=== PATIENT | female | born 1960 | race Caucasian/White ===

== ENCOUNTER 2017-12-25 10:47 | Emergency (ER) | payer MEDICARE, MEDICAID ==
[~2017-12-25] VITALS: Ht 167.6 cm; Wt 49.0 kg
[~2017-12-25 10:47] MED LIST: PROC25SU31 RC
[2017-12-25] MEDS ORDERED: famotidine/PF 10 mg/ml inj IV ONE (11:55)
[2017-12-25] MEDS ORDERED: ondansetron/PF 4mg/2ml inj IV ONE (11:55)
[2017-12-25] MEDS ORDERED: pantoprazole 40 MG vial IV ONE (11:55)
[2017-12-25] MEDS ORDERED: normal saline 1000ml 1,000 ML IV ONE (11:55)
[2017-12-25] MEDS ORDERED: proCHLORperazine 10 MG/2 ml inj IV ONE (11:55)
[2017-12-25 12:15] LABS: BASOPHILS % (AUTO) 0.4 % (0-1); EOSINOPHILS % (AUTO) 0 % (0-6); HEMATOCRIT 46.3 % (35.0-45.0); HEMOGLOBIN 15.7 g/dl (12.0-16.0); LYMPHOCYTES % (AUTO) 25.8 % (21-51); MEAN CORPUSCULAR HEMOGLOBIN 30.8 PG (27.0-31.0); MEAN CORPUSCULAR HGB CONC 33.8 % (33.0-36.5); MEAN PLATELET VOLUME 8.3 FL (7.4-10.4); MONOCYTES # (AUTO) 0.5 X10'3 (0-0.9); MONOCYTES % (AUTO) 4.2 % (2-12); NEUTROPHILS # (AUTO) 8.1 X10'3 (1.8-7.7); NEUTROPHILS % (AUTO) 69.6 % (42-75); PLATELET COUNT 222 X10'3 (140-440); RED BLOOD COUNT 5.09 X10'6 (4.20-5.60); RED CELL DISTRIBUTION WIDTH 14.2 % (11.5-14.5); WHITE BLOOD COUNT 11.7 X10'3 (4.5-11.0)
[2017-12-25 12:28] LABS: ALANINE AMINOTRANSFERASE 30 U/L (12-78); ALBUMIN 4.1 G/DL (3.4-5.0); ALBUMIN/GLOBULIN RATIO 1.2 (1.1-1.5); ALKALINE PHOSPHATASE 65 IU/L (46-116); ANION GAP 11 (8-16); ASPARTATE AMINO TRANSFERASE 19 U/L (10-37); BILIRUBIN,TOTAL 0.4 MG/DL (0.1-1.0); BLOOD UREA NITROGEN 16 MG/DL (7-18); BUN/CREATININE RATIO 23.2 (6.6-38.0); CALCIUM 9.1 MG/DL (8.5-10.1); CHLORIDE 97 MMOL/L (99-107); CREATININE 0.69 MG/DL (0.40-0.90); GLUCOSE 103 MG/DL (70-104); LIPASE 137 U/L (73-393); POTASSIUM 3.9 MMOL/L (3.5-5.1); SODIUM 134 MMOL/L (135-145); TOTAL CARBON DIOXIDE 26.1 MMOL/L (24-32); TOTAL PROTEIN 7.5 G/DL (6.4-8.2); eGFR 88 ML/MIN
[2017-12-25 12:52] LABS: CLARITY,URINE SLIGHTLY CLOUDY (Clear); COLOR,URINE YELLOW (Yellow); GLUCOSE, URINE NEGATIVE (Neg); KETONES,URINE 15 mg/dl (Neg); LEUKOCYTE ESTERASE ,URINE TRACE (Neg); NITRITES, URINE NEGATIVE (Neg); OCCULT BLOOD,URINE TRACE-LYSED (Neg); PROTEIN,URINE NEGATIVE (Neg); UROBILINOGEN,URINE 0.2 E.U/dL (0.2-1.0)
[2017-12-25 12:55] LABS: UA COLLECTION TYPE CLN CATCH MIDSTREAM
[2017-12-25 12:59] LABS: BACTERIA,URINE FEW /HPF (Neg); MUCUS STRANDS FEW /LPF (Neg); RBC,URINE NONE SEEN /HPF (0-2); SQUAMOUS EPITHELIAL CELL,UR FEW /LPF (FEW); WBC,URINE 0-4 /HPF (0-4)
[2017-12-25 13:00] LABS: AMORPHOUS PHOSPHATES 1+
[2017-12-25] MEDS ORDERED: PHE25R PR (13:57)
[2017-12-25 14:23] VITALS: BP 139/89
== END 2017-12-25 14:25 | disposition home or self-care (01) ==
LOC: ER 10:47
DX: K59.00 Constipation, unspecified (principal); R91.1 Solitary pulmonary nodule; R94.6 Abnormal results of thyroid function studies; R10.32 Left lower quadrant pain; K21.9 Gastro-esophageal reflux disease without esophagitis; F17.200 Nicotine dependence, unspecified, uncomplicated; F12.90 Cannabis use, unspecified, uncomplicated; Z90.710 Acquired absence of both cervix and uterus; Z98.890 Other specified postprocedural states; Z88.8 Allergy status to other drugs, medicaments and biological substances; Z88.5 Allergy status to narcotic agent; Z79.899 Other long term (current) drug therapy
CPT/HCPCS: 36415; 71046; 80053; 81001; 83690; 84443; 85025; 87088; 96361; 96374; 96375; 99285; C9113; J0780; J2405; J3490; J7030

== ENCOUNTER 2018-05-11 19:36 | Inpatient (IN) | payer MEDICARE, MEDICAID ==
[~2018-05-11] VITALS: Ht 167.6 cm; Wt 42.0 kg
[~2018-05-11 19:36] MED LIST changes: +PHE25R PR
[2018-05-11 20:05] LABS: BASOPHILS % (AUTO) 0.3 % (0-1); EOSINOPHILS # (AUTO) 0.2 X10'3 (0-0.9); EOSINOPHILS % (AUTO) 1.4 % (0-6); LYMPHOCYTES # (AUTO) 6.6 X10'3 (1.1-4.8); LYMPHOCYTES % (AUTO) 45.6 % (21-51); MEAN CORPUSCULAR HEMOGLOBIN 29.3 PG (27.0-31.0); MEAN CORPUSCULAR HGB CONC 33.4 % (33.0-36.5); MEAN CORPUSCULAR VOLUME 87.9 FL (78-98); MEAN PLATELET VOLUME 8.6 FL (7.4-10.4); MONOCYTES # (AUTO) 0.6 X10'3 (0-0.9); MONOCYTES % (AUTO) 3.9 % (2-12); NEUTROPHILS % (AUTO) 48.8 % (42-75); PLATELET COUNT 275 X10'3 (140-440); RED BLOOD COUNT 5.12 X10'6 (4.20-5.60); WHITE BLOOD COUNT 14.4 X10'3 (4.5-11.0)
[2018-05-11 20:07] LABS: CLARITY,URINE CLEAR (Clear); COLOR,URINE YELLOW (Yellow); GLUCOSE, URINE NEGATIVE (Neg); KETONES,URINE NEGATIVE (Neg); LEUKOCYTE ESTERASE ,URINE TRACE (Neg); NITRITES, URINE NEGATIVE (Neg); OCCULT BLOOD,URINE SMALL (Neg); PH,URINE 6.5 (4.8-8.0); PROTEIN,URINE NEGATIVE (Neg); UROBILINOGEN,URINE 0.2 E.U/dL (0.2-1.0)
[2018-05-11 20:19] LABS: ALANINE AMINOTRANSFERASE 20 U/L (12-78); ALBUMIN 3.8 G/DL (3.4-5.0); ALBUMIN/GLOBULIN RATIO 1.2 (1.1-1.5); ALKALINE PHOSPHATASE 70 IU/L (46-116); AMYLASE 45 U/L (25-115); ANION GAP 7 (8-16); ASPARTATE AMINO TRANSFERASE 17 U/L (10-37); BILIRUBIN,TOTAL 0.3 MG/DL (0.1-1.0); BLOOD UREA NITROGEN 9 MG/DL (7-18); BUN/CREATININE RATIO 13.8 (6.6-38.0); CALCIUM 9.1 MG/DL (8.5-10.1); CHLORIDE 98 MMOL/L (99-107); CREATININE 0.65 MG/DL (0.40-0.90); GLUCOSE 108 MG/DL (70-104); LIPASE 285 U/L (73-393); SODIUM 136 MMOL/L (135-145); TOTAL CARBON DIOXIDE 30.7 MMOL/L (24-32); eGFR > 90 ML/MIN
[2018-05-11 20:21] LABS: UA COLLECTION TYPE CLN CATCH MIDSTREAM
[2018-05-11 20:27] LABS: INR 1.1 INR; PROTHROMBIN TIME 11.3 SECONDS (9.0-12.0)
[2018-05-11 20:32] LABS: RBC,URINE 0-2 /HPF (0-2); WBC,URINE 0-4 /HPF (0-4)
[2018-05-11 20:33] LABS: BACTERIA,URINE FEW /HPF (Neg); MUCUS STRANDS NONE SEEN /LPF (Neg); SQUAMOUS EPITHELIAL CELL,UR FEW /LPF (FEW)
[2018-05-11] MEDS ORDERED: potassium 10mEq/100ml NS w/LIDOcaine (10mg/bag) IV ONE ×2 (20:55→21:35)
[2018-05-11] MEDS ORDERED: temazepam 15mg capsule PO PRN (21:00)
[2018-05-11 21:07] LABS: MAGNESIUM 1.9 MG/DL (1.5-2.4)
[2018-05-11] MEDS ORDERED: ondansetron/PF 4mg/2ml inj IV ONE (21:30)
[2018-05-11] MEDS ORDERED: normal saline 1000ML IV soln IVB ONE (21:30)
[2018-05-11] MEDS ORDERED: magnesium 1gm/100ml D5W IVPB 100 ML IV SCH (21:35)
[2018-05-11 22:17] LABS: PHOSPHORUS 3.2 MG/DL (2.3-4.5)
[2018-05-11 22:34] LABS: URINE AMPHETAMINE SCREEN NEGATIVE (Neg); URINE BARBITUATE SCREEN NEGATIVE (Neg); URINE BENZODIAZEPINES SCREEN NEGATIVE (Neg); URINE CANNABINOID SCREEN POSITIVE (Neg); URINE COCAINE SCREEN NEGATIVE (Neg); URINE METHADONE SCREEN NEGATIVE (Neg); URINE OPIATE SCREEN POSITIVE (Neg); URINE PHENCYCLIDINE SCREEN NEGATIVE (Neg)
[2018-05-11] MEDS ORDERED: ALPR-624 PO (22:43)
[2018-05-11] MEDS ORDERED: SIMV20TA5 PO (22:43)
[2018-05-11] MEDS ORDERED: FLUO-1 PO (22:43)
[2018-05-11] MEDS ORDERED: MONT10TA24 PO (22:43)
[2018-05-11] MEDS ORDERED: CLON-371 PO (22:43)
[2018-05-11] MEDS ORDERED: METO10TA3 PO (22:43)
[2018-05-11] MEDS ORDERED: LEVO100T9 PO (22:43)
[2018-05-11] MEDS ORDERED: PANT40TA4 PO (22:43)
[2018-05-11] MEDS ORDERED: HYDR-3973 PO (22:43)
[2018-05-11] MEDS: CefTRIAXone/D5W-Rocephin 1gm 50 ML IV SCH (23:00)
[2018-05-11] MEDS ORDERED: magnesium 2GM in 50ml NS 50 ML IV SCH (23:10)
[2018-05-11] MEDS ORDERED: proCHLORperazine 10 MG/2 ml inj IV ONE (23:25)
[2018-05-11] MEDS: potassium Cl 20mEq in NS 1,000 ML IV SCH (23:34)
[2018-05-11] MEDS ORDERED: ALPRAZolam 0.5mg tablet PO PRN (23:35)
[2018-05-11] MEDS ORDERED: bisacodyl 10mg suppository rectal RC PRN (23:35)
[2018-05-11] MEDS ORDERED: diphenhydrAMINE 50 mg/ml inj IV PRN (23:35)
[2018-05-11] MEDS ORDERED: metoclopramide 5 mg/ml inj IV PRN (23:35)
[2018-05-11] MEDS ORDERED: acetaminophen 325mg tablet PO PRN ×2 (23:35)
[2018-05-11] MEDS ORDERED: potassium Cl 40MEQ/NS 500ml 500 ML IV PRN ×2 (23:35)
[2018-05-11] MEDS ORDERED: potassium Cl 20 mEq SR tablet PO PRN ×2 (23:35)
[2018-05-11] MEDS ORDERED: acetaminophen 650mg rectal suppository RC PRN (23:35)
[2018-05-11] MEDS ORDERED: magnesium hydroxide 30ml (MOM) UD suspension PO PRN (23:35)
[2018-05-11] MEDS ORDERED: mag hydrox/Alum hydrox/simeth 30ml oral suspension PO PRN (23:35)
[2018-05-11] MEDS ORDERED: HYDROcodone/acetaminophen 10/325mg tab PO PRN (23:35)
[2018-05-11] MEDS ORDERED: diphenhydrAMINE 25mg capsule PO PRN (23:35)
[2018-05-12 01:50] LABS: PARTIAL THROMBOPLASTIN TIME 28 SECONDS (22-32)
[2018-05-12 01:54] LABS: ALANINE AMINOTRANSFERASE 18 U/L (12-78); ALBUMIN 3.2 G/DL (3.4-5.0); ALBUMIN/GLOBULIN RATIO 1.1 (1.1-1.5); ALKALINE PHOSPHATASE 55 IU/L (46-116); ANION GAP 9 (8-16); ASPARTATE AMINO TRANSFERASE 16 U/L (10-37); BILIRUBIN,TOTAL 0.3 MG/DL (0.1-1.0); BLOOD UREA NITROGEN 7 MG/DL (7-18); BUN/CREATININE RATIO 13.7 (6.6-38.0); CALCIUM 8.5 MG/DL (8.5-10.1); CHLORIDE 104 MMOL/L (99-107); CHOL/HDL RATIO 4.1 (0.00-4.99); CHOLESTEROL 174 MG/DL (0-200); CREATININE 0.51 MG/DL (0.40-0.90); GLUCOSE 98 MG/DL (70-104); HDL CHOLESTEROL 42 MG/DL (35-60); LDL CHOLESTEROL 112 MG/DL (50-100); SODIUM 140 MMOL/L (135-145); TOTAL CARBON DIOXIDE 27.1 MMOL/L (24-32); TRIGLYCERIDES 95 MG/DL (20-135); eGFR > 90 ML/MIN
[2018-05-12 01:56] LABS: BASOPHILS % (AUTO) 0.5 % (0-1); EOSINOPHILS # (AUTO) 0.1 X10'3 (0-0.9); EOSINOPHILS % (AUTO) 1.3 % (0-6); HEMATOCRIT 39.6 % (35.0-45.0); HEMOGLOBIN 13.2 g/dl (12.0-16.0); LYMPHOCYTES # (AUTO) 4.6 X10'3 (1.1-4.8); LYMPHOCYTES % (AUTO) 55.5 % (21-51); MEAN CORPUSCULAR HEMOGLOBIN 29.2 PG (27.0-31.0); MEAN CORPUSCULAR HGB CONC 33.4 % (33.0-36.5); MEAN CORPUSCULAR VOLUME 87.3 FL (78-98); MEAN PLATELET VOLUME 9.3 FL (7.4-10.4); MONOCYTES # (AUTO) 0.5 X10'3 (0-0.9); MONOCYTES % (AUTO) 5.6 % (2-12); NEUTROPHILS # (AUTO) 3.1 X10'3 (1.8-7.7); NEUTROPHILS % (AUTO) 37.1 % (42-75); PLATELET COUNT 221 X10'3 (140-440); RED BLOOD COUNT 4.53 X10'6 (4.20-5.60); RED CELL DISTRIBUTION WIDTH 14.1 % (11.5-14.5); WHITE BLOOD COUNT 8.3 X10'3 (4.5-11.0)
[2018-05-12 02:09] LABS: POTASSIUM 2.9 MMOL/L (3.5-5.1)
[2018-05-12 02:27] LABS: HEMOGLOBIN A1C 6.1 % (4.5-6.2)
[2018-05-12 07:25] LABS: MAGNESIUM 1.6 MG/DL (1.5-2.4)
[2018-05-12] MEDS: pantoprazole 40 MG vial IV SCH ×2 (08:10→22:33)
[2018-05-12] MEDS: levoTHYROXINE 100mcg tablet PO SCH (08:10)
[2018-05-12] MEDS: docusate sod 100mg capsule PO SCH ×2 (08:11→22:33)
[2018-05-12] MEDS: nicotine 21mg patch - 24 hr TD SCH ×2 (08:11→08:18)
[2018-05-12] MEDS: FLUoxetine 20mg capsule PO SCH ×2 (08:11→22:33)
[2018-05-12] MEDS: CefTRIAXone/D5W-Rocephin 1gm 50 ML IV SCH (08:12)
[2018-05-12] MEDS: heparin, porcine 5000 units/ml vial SQ SCH ×2 (08:16→22:34)
[2018-05-12] MEDS: potassium Cl 20mEq in NS 1,000 ML IV SCH ×2 (10:07→15:27)
[2018-05-12 13:17] VITALS: BP 83/60
[2018-05-12] MEDS ORDERED: atorvastatin 10mg tablet PO SCH (17:00)
[2018-05-12] MEDS ORDERED: ALBU18HF2 INH (17:38)
[2018-05-12 19:00] VITALS: BP 114/79
[2018-05-12] MEDS: HYDROmorphone 1 mg/ml syringe IV PRN (19:18)
[2018-05-12] MEDS: ondansetron/PF 4mg/2ml inj IV PRN (19:18)
[2018-05-12] MEDS ORDERED: clonazePAM 1mg tablet PO SCH (21:00)
[2018-05-12] MEDS ORDERED: montelukast 10mg tablet PO SCH (21:00)
[2018-05-12] MEDS: diatr meglu/diatrizoate 30ml oral sol.-(3 dose) bottle PO SCH (22:42)
[2018-05-13] VITALS: BP 91/53
[2018-05-13] MEDS: potassium Cl 20mEq in NS 1,000 ML IV SCH ×2 (02:52→15:34)
[2018-05-13] MEDS: ondansetron/PF 4mg/2ml inj IV PRN (04:27)
[2018-05-13 05:18] LABS: BASOPHILS # (AUTO) 0.1 X10'3 (0-0.2); BASOPHILS % (AUTO) 1.2 % (0-1); EOSINOPHILS # (AUTO) 0.2 X10'3 (0-0.9); EOSINOPHILS % (AUTO) 1.7 % (0-6); HEMATOCRIT 39.7 % (35.0-45.0); HEMOGLOBIN 13.2 g/dl (12.0-16.0); LYMPHOCYTES # (AUTO) 6.7 X10'3 (1.1-4.8); LYMPHOCYTES % (AUTO) 65.3 % (21-51); MEAN CORPUSCULAR HEMOGLOBIN 29.3 PG (27.0-31.0); MEAN CORPUSCULAR HGB CONC 33.3 % (33.0-36.5); MEAN PLATELET VOLUME 9.7 FL (7.4-10.4); MONOCYTES # (AUTO) 0.5 X10'3 (0-0.9); MONOCYTES % (AUTO) 5.1 % (2-12); NEUTROPHILS # (AUTO) 2.7 X10'3 (1.8-7.7); NEUTROPHILS % (AUTO) 26.7 % (42-75); PLATELET COUNT 235 X10'3 (140-440); RED BLOOD COUNT 4.51 X10'6 (4.20-5.60); WHITE BLOOD COUNT 10.2 X10'3 (4.5-11.0)
[2018-05-13] MEDS: HYDROmorphone 1 mg/ml syringe IV PRN ×2 (05:19→10:08)
[2018-05-13 05:32] LABS: ALANINE AMINOTRANSFERASE 17 U/L (12-78); ALBUMIN 3.3 G/DL (3.4-5.0); ALBUMIN/GLOBULIN RATIO 1.2 (1.1-1.5); ALKALINE PHOSPHATASE 62 IU/L (46-116); ANION GAP 7 (8-16); ASPARTATE AMINO TRANSFERASE 14 U/L (10-37); BILIRUBIN,TOTAL 0.3 MG/DL (0.1-1.0); BLOOD UREA NITROGEN 7 MG/DL (7-18); BUN/CREATININE RATIO 11.9 (6.6-38.0); CHLORIDE 106 MMOL/L (99-107); CREATININE 0.59 MG/DL (0.40-0.90); GLUCOSE 86 MG/DL (70-104); POTASSIUM 3.8 MMOL/L (3.5-5.1); SODIUM 138 MMOL/L (135-145); TOTAL CARBON DIOXIDE 24.7 MMOL/L (24-32); eGFR > 90 ML/MIN
[2018-05-13] MEDS: diatr meglu/diatrizoate 30ml oral sol.-(3 dose) bottle PO SCH (07:00)
[2018-05-13 07:05] LABS: PLATELET ESTIMATE NORMAL
[2018-05-13 07:06] LABS: ACANTHOCYTES FEW; BURR CELLS 1+
[2018-05-13] MEDS: pantoprazole 40 MG vial IV SCH (07:42)
[2018-05-13] MEDS: CefTRIAXone/D5W-Rocephin 1gm 50 ML IV SCH (07:42)
[2018-05-13] MEDS: levoTHYROXINE 100mcg tablet PO SCH (07:43)
[2018-05-13] MEDS: FLUoxetine 20mg capsule PO SCH (07:43)
[2018-05-13] MEDS: docusate sod 100mg capsule PO SCH (07:43)
[2018-05-13] MEDS: heparin, porcine 5000 units/ml vial SQ SCH (07:46)
[2018-05-13 08:06] VITALS: BP 121/76
[2018-05-13] MEDS ORDERED: iohexol 300mg/ml 100ml inj. ONE (09:09)
[2018-05-13 12:34] VITALS: BP 92/34
[2018-05-13] MEDS ORDERED: PHE12.5T PO (15:14)
== END 2018-05-13 16:38 | disposition home or self-care (01) | DRG 391 ==
LOC: ER 19:36 → ED HOLD 23:34 → SUR 3N 05-12 13:03
PROVIDERS: ADMIT Family Medicine; ATTEND Family Medicine
PROC: BW251ZZ Computerized Tomography (CT Scan) of Chest, Abdomen and Pelvis using Low Osmolar Contrast (ICD-10-PCS; principal; 2018-05-13)
DX: A08.4 Viral intestinal infection, unspecified (principal); E43 Unspecified severe protein-calorie malnutrition; K86.1 Other chronic pancreatitis; Z68.1 Body mass index [BMI] 19.9 or less, adult; E87.6 Hypokalemia; F12.90 Cannabis use, unspecified, uncomplicated; F17.210 Nicotine dependence, cigarettes, uncomplicated; G89.29 Other chronic pain; K21.9 Gastro-esophageal reflux disease without esophagitis; F32.9 Major depressive disorder, single episode, unspecified; F41.9 Anxiety disorder, unspecified; K76.9 Liver disease, unspecified; Z90.710 Acquired absence of both cervix and uterus; Z88.5 Allergy status to narcotic agent; Z88.8 Allergy status to other drugs, medicaments and biological substances; Z91.018 Allergy to other foods; Z79.899 Other long term (current) drug therapy; Z87.440 Personal history of urinary (tract) infections
CPT/HCPCS: 36415; 71045; 71260; 74177; 80053; 80061; 80305; 81001; 82150; 82378; 83036; 83605; 83690; 83735; 83880; 84100; 84132; 84443; 84484; 85025; 85610; 85730; 87040; 87070; 87088; 93005; 96365; 96375; 99285; C9113; G0378; J0696; J0780; J1170; J1644; J2405; J2765; J3480; Q9963; Q9967

== ENCOUNTER 2020-04-08 04:43 | Emergency (ER) | payer MEDICARE, MEDICAID ==
[~2020-04-08] VITALS: Ht 167.6 cm; Wt 59.5 kg
[~2020-04-08 04:43] MED LIST changes: +ALPR-624 PO; +CLON-371 PO; +FLUO-1 PO; +HYDR-3973 PO; +LEVO100T9 PO; +METO10TA3 PO; +MONT10TA26 PO; +PANT40TA54 PO; -PHE25R PR; -PROC25SU31 RC; +PROM12.512 PO; +SIMV-42 PO
[2020-04-08] MEDS ORDERED: normal saline 1000ML IV soln IVB ONE (04:50)
[2020-04-08] MEDS ORDERED: ondansetron/PF 4mg/2ml inj IV ONE (04:50)
[2020-04-08] MEDS ORDERED: LORazepam 2 mg/ml vial IV ONE (05:20)
[2020-04-08 05:30] LABS: PARTIAL THROMBOPLASTIN TIME 30 SECONDS (22-32)
[2020-04-08 05:32] LABS: ALANINE AMINOTRANSFERASE 32 U/L (12-78); ALBUMIN 4.6 G/DL (3.4-5.0); ALBUMIN/GLOBULIN RATIO 1.2 (1.1-1.5); ALKALINE PHOSPHATASE 89 IU/L (46-116); AMYLASE 28 U/L (25-115); ANION GAP 14 (8-16); ASPARTATE AMINO TRANSFERASE 70 U/L (10-37); BILIRUBIN,TOTAL 0.6 MG/DL (0.1-1.0); BLOOD UREA NITROGEN 16 MG/DL (7-18); BUN/CREATININE RATIO 24.2 (6.6-38.0); CALCIUM 9.3 MG/DL (8.5-10.1); CHLORIDE 94 MMOL/L (99-107); CREATININE 0.66 MG/DL (0.40-0.90); ETHANOL < 0.010 GM/DL (0.0-0.010); GLUCOSE 110 MG/DL (70-104); LIPASE 83 U/L (73-393); MAGNESIUM 2.1 MG/DL (1.5-2.4); SODIUM 133 MMOL/L (135-145); TOTAL CARBON DIOXIDE 25.3 MMOL/L (24-32); TOTAL PROTEIN 8.5 G/DL (6.4-8.2); eGFR > 90 ML/MIN
[2020-04-08 05:45] LABS: URINE HCG NEGATIVE (NEG)
[2020-04-08 05:46] LABS: BASOPHILS # (AUTO) 0.1 X10'3 (0-0.2); BASOPHILS % (AUTO) 0.3 % (0-1); EOSINOPHILS % (AUTO) 0.2 % (0-6); HEMATOCRIT 45.7 % (35.0-45.0); HEMOGLOBIN 15.4 g/dl (12.0-16.0); LYMPHOCYTES # (AUTO) 4.1 X10'3 (1.1-4.8); MEAN CORPUSCULAR HEMOGLOBIN 29.4 PG (27.0-31.0); MEAN CORPUSCULAR HGB CONC 33.8 g/dL (33.0-36.5); MEAN CORPUSCULAR VOLUME 86.9 FL (78-98); MEAN PLATELET VOLUME 7.9 FL (7.4-10.4); MONOCYTES # (AUTO) 1.3 X10'3 (0-0.9); MONOCYTES % (AUTO) 6.6 % (2-12); NEUTROPHILS # (AUTO) 14.1 X10'3 (1.8-7.7); NEUTROPHILS % (AUTO) 71.9 % (42-75); PLATELET COUNT 367 X10'3 (140-440); RED BLOOD COUNT 5.26 X10'6 (4.20-5.60); RED CELL DISTRIBUTION WIDTH 14.7 % (11.5-14.5); WHITE BLOOD COUNT 19.6 X10'3 (4.5-11.0)
[2020-04-08] MEDS ORDERED: potassium Cl 10 mEq/100mL bag IV ONE ×2 (05:55→06:20)
[2020-04-08] MEDS ORDERED: iohexol 300mg/ml 100ml inj. ONE (06:10)
[2020-04-08 06:20] LABS: CLARITY,URINE CLEAR (Clear); COLOR,URINE YELLOW (Yellow); GLUCOSE, URINE NEGATIVE (Neg); KETONES,URINE 40 mg/dl (Neg); LEUKOCYTE ESTERASE ,URINE SMALL (Neg); NITRITES, URINE NEGATIVE (Neg); OCCULT BLOOD,URINE MODERATE (Neg); PH,URINE 6.5 (4.8-8.0); PROTEIN,URINE NEGATIVE (Neg); UROBILINOGEN,URINE 0.2 E.U/dL (0.2-1.0)
[2020-04-08 06:22] LABS: UA COLLECTION TYPE CLN CATCH MIDSTREAM
[2020-04-08 06:47] LABS: BACTERIA,URINE FEW /HPF (Neg)
[2020-04-08 06:48] LABS: MUCUS STRANDS NONE SEEN /LPF (Neg); SQUAMOUS EPITHELIAL CELL,UR FEW /LPF (FEW); TRANSITIONAL EPI CELLS,URINE FEW /HPF
[2020-04-08 09:47] VITALS: BP 113/96
== END 2020-04-08 10:01 | disposition home or self-care (01) ==
LOC: ER 04:44
DX: E87.6 Hypokalemia (principal); R10.12 Left upper quadrant pain; R11.2 Nausea with vomiting, unspecified; K21.9 Gastro-esophageal reflux disease without esophagitis; F41.9 Anxiety disorder, unspecified; F32.9 Major depressive disorder, single episode, unspecified; F17.210 Nicotine dependence, cigarettes, uncomplicated; F12.90 Cannabis use, unspecified, uncomplicated; Z98.890 Other specified postprocedural states; Z86.19 Personal history of other infectious and parasitic diseases; Z72.89 Other problems related to lifestyle; Z88.8 Allergy status to other drugs, medicaments and biological substances; Z79.899 Other long term (current) drug therapy; Z88.5 Allergy status to narcotic agent
CPT/HCPCS: 36415; 74018; 74177; 80053; 80320; 81001; 81025; 82150; 83690; 83735; 85025; 85610; 85730; 87088; 96365; 96366; 96375; 99285; J2060; J2405; J3480; J7030; Q9967

== ENCOUNTER 2020-11-14 11:19 | Emergency (ER) | payer MEDICARE, MEDICAID ==
[~2020-11-14] VITALS: Ht 167.6 cm; Wt 53.2 kg
[~2020-11-14 11:19] MED LIST changes: -MONT10TA26 PO; +MONT10TA32 PO
[2020-11-14 12:30] LABS: BASOPHILS # (AUTO) 0.1 X10'3 (0-0.2); BASOPHILS % (AUTO) 0.4 % (0-1); EOSINOPHILS % (AUTO) 0.2 % (0-6); HEMOGLOBIN 15.1 g/dl (12.0-16.0); LYMPHOCYTES # (AUTO) 3.2 X10'3 (1.1-4.8); LYMPHOCYTES % (AUTO) 13.9 % (21-51); MEAN CORPUSCULAR HEMOGLOBIN 29.7 PG (27.0-31.0); MEAN CORPUSCULAR HGB CONC 34.3 g/dL (33.0-36.5); MEAN CORPUSCULAR VOLUME 86.6 FL (78-98); MEAN PLATELET VOLUME 7.7 FL (7.4-10.4); MONOCYTES # (AUTO) 1.1 X10'3 (0-0.9); MONOCYTES % (AUTO) 4.8 % (2-12); NEUTROPHILS # (AUTO) 18.4 X10'3 (1.8-7.7); NEUTROPHILS % (AUTO) 80.7 % (42-75); PLATELET COUNT 424 X10'3 (140-440); RED BLOOD COUNT 5.08 X10'6 (4.20-5.60); RED CELL DISTRIBUTION WIDTH 14.5 % (11.5-14.5); WHITE BLOOD COUNT 22.8 X10'3 (4.5-11.0)
[2020-11-14 12:34] LABS: ALANINE AMINOTRANSFERASE 21 U/L (12-78); ALBUMIN 4.3 G/DL (3.4-5.0); ALBUMIN/GLOBULIN RATIO 1.2 (1.1-1.5); ALKALINE PHOSPHATASE 104 IU/L (46-116); ANION GAP 16 (8-16); ASPARTATE AMINO TRANSFERASE 13 U/L (10-37); BILIRUBIN,TOTAL 0.6 MG/DL (0.1-1.0); BLOOD UREA NITROGEN 21 MG/DL (7-18); BUN/CREATININE RATIO 28.4 (6.6-38.0); CALCIUM 9.6 MG/DL (8.5-10.1); CHLORIDE 89 MMOL/L (99-107); CREATININE 0.74 MG/DL (0.40-0.90); GLUCOSE 108 MG/DL (70-104); LIPASE 113 U/L (73-393); SODIUM 129 MMOL/L (135-145); TOTAL CARBON DIOXIDE 24.1 MMOL/L (24-32); TOTAL PROTEIN 7.8 G/DL (6.4-8.2); eGFR 80 ML/MIN
[2020-11-14 13:13] LABS: CLARITY,URINE SLIGHTLY CLOUDY (Clear); COLOR,URINE YELLOW (Yellow); GLUCOSE, URINE NEGATIVE (Neg); KETONES,URINE >=80 mg/dl (Neg); LEUKOCYTE ESTERASE ,URINE TRACE (Neg); NITRITES, URINE NEGATIVE (Neg); OCCULT BLOOD,URINE MODERATE (Neg); PROTEIN,URINE TRACE mg/dl (Neg); UROBILINOGEN,URINE 0.2 E.U/dL (0.2-1.0)
[2020-11-14 13:19] LABS: UA COLLECTION TYPE VOIDED
[2020-11-14 13:24] LABS: MUCUS STRANDS MODERATE /LPF (Neg); SQUAMOUS EPITHELIAL CELL,UR MODERATE /LPF (FEW)
[2020-11-14 13:27] LABS: BACTERIA,URINE FEW /HPF (Neg); TRANSITIONAL EPI CELLS,URINE FEW /HPF
[2020-11-14] MEDS ORDERED: normal saline 1000ML IV soln IVB ONE (13:35)
[2020-11-14] MEDS ORDERED: ondansetron/PF 4mg/2ml inj IV ONE (13:35)
[2020-11-14] MEDS ORDERED: ketorolac tromethamine 15mg/ml inj. IV ONE (13:35)
[2020-11-14 13:39] LABS: C-REACTIVE PROTEIN < 0.05 MG/DL (0.0-0.5)
[2020-11-14] MEDS: potassium Cl 10 mEq/100mL bag IV SCH ×2 (14:10→15:02)
[2020-11-14] MEDS ORDERED: ZOLP5TAB8 PO (14:33)
[2020-11-14] MEDS ORDERED: MONT10TA32 PO (14:33)
[2020-11-14] MEDS ORDERED: ONDA8TAB65 PO (14:34)
[2020-11-14] MEDS ORDERED: ALPH600C3 PO (14:42)
[2020-11-14] MEDS ORDERED: AMIT-189 PO (14:42)
[2020-11-14] MEDS ORDERED: LEVO50TA PO (14:42)
[2020-11-14] MEDS ORDERED: DULO-31 PO (14:42)
[2020-11-14] MEDS ORDERED: PROM25TA14 PO (14:42)
[2020-11-14] MEDS ORDERED: CETI10CA19 PO (14:42)
[2020-11-14] MEDS ORDERED: ACET600C PO (14:42)
[2020-11-14] MEDS ORDERED: BUS15T PO (14:42)
[2020-11-14] MEDS ORDERED: iohexol 300mg/ml 100ml inj. ONE (15:33)
[2020-11-14] MEDS ORDERED: proCHLORperazine 10 MG/2 ml inj IV ONE (16:55)
[2020-11-14 17:08] LABS: ALBUMIN 4.2 G/DL (3.4-5.0); ANION GAP 19 (8-16); BLOOD UREA NITROGEN 13 MG/DL (7-18); BUN/CREATININE RATIO 17.1 (6.6-38.0); CALCIUM 8.5 MG/DL (8.5-10.1); CHLORIDE 94 MMOL/L (99-107); CREATININE 0.76 MG/DL (0.40-0.90); GLUCOSE 91 MG/DL (70-104); POTASSIUM 3.1 MMOL/L (3.5-5.1); SODIUM 132 MMOL/L (135-145); TOTAL CARBON DIOXIDE 18.7 MMOL/L (24-32); eGFR 78 ML/MIN
--- NOTE | 2020-11-14 17:21 | NUR ---
Pt given chicken broth
[2020-11-14] MEDS ORDERED: potassium Cl 20 mEq SR tablet PO STA (18:04)
[2020-11-14 18:25] VITALS: BP 131/88
== END 2020-11-14 18:27 | disposition home or self-care (01) ==
LOC: ER 11:20
DX: R11.15 Cyclical vomiting syndrome unrelated to migraine (principal); R10.31 Right lower quadrant pain; F12.90 Cannabis use, unspecified, uncomplicated; K21.9 Gastro-esophageal reflux disease without esophagitis; Z85.9 Personal history of malignant neoplasm, unspecified; K86.1 Other chronic pancreatitis; K72.90 Hepatic failure, unspecified without coma; Z87.440 Personal history of urinary (tract) infections; Z90.710 Acquired absence of both cervix and uterus; Z79.899 Other long term (current) drug therapy; Z88.6 Allergy status to analgesic agent; Z88.8 Allergy status to other drugs, medicaments and biological substances
CPT/HCPCS: 36415; 74177; 76700; 80048; 80053; 81001; 83605; 83690; 84145; 85025; 85651; 86140; 87040; 87088; 96365; 96366; 96375; 99285; J0780; J1885; J2405; J3480; J7030; Q9967; 96361; 96374

== ENCOUNTER 2021-06-10 07:42 | Emergency (ER) | payer MEDICARE, MEDICAID ==
[~2021-06-10] VITALS: Ht 167.6 cm; Wt 57.0 kg
[~2021-06-10 07:42] MED LIST changes: +ACET600C PO; +ALPH600C3 PO; -ALPR-624 PO; +AMIT-189 PO; +BUS15T PO; +CETI10CA19 PO; -CLON-371 PO; +DULO-31 PO; +LEVO50TA PO; -METO10TA3 PO; +MONT-40 PO; -MONT10TA32 PO; +ONDA-104 PO; -PROM12.512 PO; +PROM25TA14 PO; -SIMV-42 PO; +ZOLP5TAB8 PO
[2021-06-10 07:56] VITALS: BP 131/110
[2021-06-10] MEDS ORDERED: ketorolac trometh inj. 60 MG/2 ML VIAL IM ONE (10:10)
[2021-06-10] MEDS ORDERED: orphenadrine citrate 60mg/2ml inj. IM ONE (10:10)
[2021-06-10] MEDS ORDERED: ORPH100T2 PO (10:14)
== END 2021-06-10 11:01 | disposition home or self-care (01) ==
LOC: ER 07:43
DX: M62.838 Other muscle spasm (principal); M54.89 Other dorsalgia; K21.9 Gastro-esophageal reflux disease without esophagitis; F41.9 Anxiety disorder, unspecified; F32.9 Major depressive disorder, single episode, unspecified; F12.90 Cannabis use, unspecified, uncomplicated; Z86.19 Personal history of other infectious and parasitic diseases; Z87.440 Personal history of urinary (tract) infections; Z85.9 Personal history of malignant neoplasm, unspecified; Z90.710 Acquired absence of both cervix and uterus; Z98.890 Other specified postprocedural states; Z72.89 Other problems related to lifestyle; Z88.8 Allergy status to other drugs, medicaments and biological substances; Z88.5 Allergy status to narcotic agent; Z79.899 Other long term (current) drug therapy
CPT/HCPCS: 96372; 99284; J1885; J2360